=== PATIENT | female | born 1955 | race Caucasian/White ===

== ENCOUNTER → 2020-11-09 | Outpatient (CLI) | payer MEDICARE ==
[~2020-11-09] MED LIST: ALEN70 PO; AMOCLA875 PO; DYAZIDE 37.5-21 EACH PO; ESTR.05PBW TOP; HYDMOR2 PO; LEVSOD100 PO; LEVSOD125 PO; TRAM50; VALA500; VALA500 PO
== END | disposition home or self-care (01) ==
LOC: LAB SHORT 09:33 → LAB 09:33
PROVIDERS: Family Medicine
DX: G89.29 Other chronic pain (principal); Z79.899 Other long term (current) drug therapy
CPT/HCPCS: G0480